=== PATIENT | male | born 1950 | race Caucasian/White ===

== ENCOUNTER 2023-04-11 07:58 | Outpatient (CLI) | payer MEDICARE, SELFPAY | END 2023-04-11 07:59 | disposition home or self-care (01) | LOC: NFLDREF 04-14 07:21 | PROVIDERS: PCP Family Medicine; Visit Provider Family Medicine | DX: Z00.00 Encounter for general adult medical examination without abnormal findings (principal); E78.5 Hyperlipidemia, unspecified; E66.3 Overweight; Z12.5 Encounter for screening for malignant neoplasm of prostate | CPT/HCPCS: 80053; 80061; 84153 ==

== ENCOUNTER 2023-11-08 10:27 | Outpatient (CLI) | payer MEDICARE, SELFPAY | END 2023-11-08 10:28 | disposition home or self-care (01) | PROVIDERS: PCP Family Medicine; Visit Provider Family Medicine | DX: R53.83 Other fatigue (principal); E78.5 Hyperlipidemia, unspecified; E66.3 Overweight | CPT/HCPCS: 80053; 84443 ==

== ENCOUNTER 2023-11-30 11:22 | Emergency (ER) | payer MEDICARE, SELFPAY ==
[2023-11-30 11:27] VITALS: BP 130/70; PULSE 58; RESP 20; TEMP 35.9; O2SAT 99; BMI 31.3
--- NOTE | 2023-11-30 11:59 | ED.GENADULT ---
HPI - General Adult General Time Seen by Provider: 11:59 Date Seen: 11/30/23 Chief complaint: Constipation Stated complaint: Constipated Time Seen by Provider: 11/30/23 11:59 Source: patient and RN notes reviewed Mode of arrival: ambulatory Limitations: no limitations History of Present Illness HPI narrative: This 73-year-old male is coming in with about a 10 day history of decreased stooling. He did go a small amount yesterday but really feels bloated and gassy. He is noting that the symptoms started after starting escitalopram 10 days ago. He has had no vomiting but has had diminished appetite in oral intake, does feel nauseated right now. No fevers or chills. He has had a history of constipation the past, states he has gotten suppositories from us in the past. He did stop at clinic to talk to them about is medicine but came over here as he felt he really needed to have a bowel movement. Related Data Previous Rx's Medication Instructions Recorded albuterol sulfate 90 mcg/actuation 2 puff inhalation Q4-6H PRN 05/04/22 aerosol inhaler (ProAir HFA) shortness of breath or wheezing #8.5 grams simvastatin 20 mg tablet 20 mg PO .Bedtime #90 tabs 04/16/23 escitalopram oxalate 10 mg tablet 10 mg PO QDAY #30 tabs 11/21/23 Allergies Allergy/AdvReac Type Severity Reaction Status Date / Time No Known Allergies Allergy Verified 11/08/23 09:30 Review of Systems Narrative: As per HPI. PFS PFS Medical History Trochanteric bursitis ?M70.60 - Trochanteric bursitis, unspecified hip (ICD-10) Gastroesophageal reflux (02/08/10) ?K21.9 - Gastro-esophageal reflux disease without esophagitis (ICD-10) Constipation due to opioid therapy ?K59.03 - Drug induced constipation (ICD-10) ?T40.2X5A - Adverse effect of other opioids, initial encounter (ICD-10) Back pain ?M54.9 - Dorsalgia, unspecified (ICD-10) Alcohol abuse (08/14/11) ?F10.10 - Alcohol abuse, uncomplicated (ICD-10) Hemorrhoids ?K64.9 - Unspecified hemorrhoids (ICD-10) History of depression ?Z86.59 - Personal history of other mental and behavioral disorders (ICD-10) Surgical History Status post rotator cuff repair ?Z98.890 - Other specified postprocedural states (ICD-10) History of foot surgery ?Z98.890 - Other specified postprocedural states (ICD-10) History of elbow surgery ?Z98.890 - Other specified postprocedural states (ICD-10) Family History (Updated 05/04/22 @ 08:47 by Froy Hardy MD) Mother Diabetes, Onset Age: 61 Father Colon cancer Social History Narrative: He is single. Retired. No children. Not sexually active. He exercises by walking and weightlifting about 4 days per week. No alcohol tobacco or recreational drug use. He struggled with alcohol use but has been sober since ~2011. Smoking Status: Never smoker How often do you have a drink containing alcohol: never How often do you have six or more drinks on one occasion: Never AUDIT-C Alcohol total score: 0 Non-prescribed substance use: denies use Little interest or pleasure in doing things: not at all Feeling down, depressed, or hopeless: not at all service: No Exam Const: Vital Signs, click to edit/add: Vital Signs - 24 hr 11/30/23 11:27 11/30/23 12:06 Temperature 96.7 F L Pulse Rate [Pulse Oximeter] 58 L 85 Respiratory Rate 20 16 Blood Pressure [Ri ght Upper Arm] 130/70 125/85 Pulse Oximetry 99 96 Oxygen Delivery Me thod Room Air Room Air This 73-year-old male is alert, interactive, no apparent distress. He is hard of hearing. He is extremely pleasant. Able to speak in complete sentences. Lungs are clear, good air entry, wheeze or crackles. CV regular rate and rhythm, no murmur, normal S1-S2, no S3-S4. Abdomen is mildly distended but soft, nontender anywhere, do not feel any masses. He has hyperactive bowel sounds. Documenting provider has reviewed patient's vital signs: yes Course Course ED Course: Reviewed with him that we will do a flat and upright to look at his bowel architecture. Did want to rule out any obstructive pathology. Do not feel he needs labs at this point or any advanced imaging. May reconsider that based on his flat and upright. If flat and upright is looking reassuring, will proceed with an Enemeez to start. Reevaluation(s) Time of Reevaluation #1: 13:26 Reevaluation #1: Patient reports he had results with the Enemeez. He states he passed a lot of gas. Reviewed with him from what I see on his x-ray, he can expect to probably still continue to passed some gas while he is moving things through. Will plan on discharge to home. Vital Signs Vital signs: Initial Vital Signs Temperature 96.7 F L 11/30/23 11:27 Temperature Source Temporal Artery Scan 11/30/23 11:27 Pulse Rate 58 L 11/30/23 11:27 Respiratory Rate 20 11/30/23 11:27 Blood Pressure 130/70 11/30/23 11:27 Blood Pressure Mean 90 11/30/23 11:27 Blood Pressure Position Supine 11/30/23 11:27 Pulse Oximetry 99 11/30/23 11:27 Oxygen Delivery Method Room Air 11/30/23 11:27 Vital Signs Temperature 96.7 F L 11/30/23 11:27 Pulse Rate 58 L 11/30/23 11:27 Respiratory Rate 20 11/30/23 11:27 Blood Pressure 130/70 11/30/23 11:27 Pulse Oximetry 99 11/30/23 11:27 Oxygen Delivery Method Room Air 11/30/23 11:27 Temperature 96.7 F L 11/30/23 11:27 Pulse Rate 85 11/30/23 12:06 Respiratory Rate 16 11/30/23 12:06 Blood Pressure 125/85 11/30/23 12:06 Pulse Oximetry 96 11/30/23 12:06 Oxygen Delivery Method Room Air 11/30/23 12:06 Medications Administered Medications: Discontinued Medications Generic Name Dose Route Start Last Admin Trade Name Freq PRN Reason Stop Dose Admin Docusate Sodium/Benzocaine 5 ml 11/30/23 12:49 11/30/23 13:01 Docusate Sodium/Benzocaine 5 Ml Enema SC 11/30/23 12:50 5 ml ONCE ONE Administration Medical Decision Making Imaging Data Abdominal x-ray: Attestation: I have reviewed the pertinent imaging results. My impression: I do see some stool buildup, no definitive evidence of any obstructive pathology, wait radiology over read. Radiologist's impression: Patient: EKATERINA LOPEZ Facility:?[facility] Patient ID:?[id number] Site Patient ID:?[id number]. Site :?[id number] Study:?XRay Abdomen FLAT /UPRIGHT 2V-11/30/2023 12:44:19 PM Ordering Physician:?Marina Thomas Final Report: Indication: CONSTIPATION Technique: Abdomen 2 view. Comparison: CT 10/08/2019 Findings: Mild curvature of the spine is present. No abnormal intra-abdominal calcifications. No free intraperitoneal air. Moderate stool within the colon. No pleural effusion. Impression: Moderate colonic stool suggesting constipation. No obstruction. Dictated by Ryder Tong MD @ 11/30/2023 12:46:27 PM (Electronic Signature) Discharge Plan Discharge Clinical Impression: Constipation Patient Disposition: Home, Self-Care Condition: Stable Instructions: Constipation (ED), High Fiber Diet (ED) Additional Instructions: Stay on your Metamucil that you have been taking. I would recommend staying on the MiraLax 17 g daily for the time being. If you do start to develop diarrhea, can back off the MiraLax. Await recommendations from your primary doctor regarding the escitalopram, continue to take it until you hear from your provider any different recommendations. Review handouts. Have it any point your abdominal pain is worsening, believe constipation is worsening or if you have vomiting with constipation, do recommend re-evaluation. Prescriptions: No Action simvastatin 20 mg tablet 20 mg PO .Bedtime Qty: 90 3RF albuterol sulfate [ProAir HFA] 90 mcg/actuation HFA aerosol inhaler 2 puff inhalation Q4-6H PRN (Reason: shortness of breath or wheezing) Qty: 8.5 5RF escitalopram oxalate 10 mg tablet 10 mg PO QDAY Qty: 30 1RF Follow Up/Referrals: Froy Hardy MD [Primary Care Provider] - Stand Alone Forms: [facility] Info Instructions
--- NOTE | 2023-11-30 12:03 | CRLHL7_ITS ---
For Patients: As a result of the Century Cures Act, medical imaging exams and procedure reports are released immediately into your electronic medical record. You may view this report before your referring provider. If you have questions, please contact your health care provider. Indication: CONSTIPATION Technique: Abdomen 2 view. Comparison: CT 10/08/2019 Findings: Mild curvature of the spine is present. No abnormal intra-abdominal calcifications. No free intraperitoneal air. Moderate stool within the colon. No pleural effusion. Impression: Moderate colonic stool suggesting constipation. No obstruction. Dictated by Ryder Tong MD @ 11/30/2023 12:46:27 PM (Electronically Signed)
[2023-11-30 12:06] VITALS: BP 125/85; PULSE 85; RESP 16; O2SAT 96
--- OUTSIDE RECORDS SUMMARY | 2023-11-30 12:10 | XMS_ITS | Clinical Summary ---
Author Name Unknown Organization [facility] Address [place], [place] [address] Care Team Providers Care Ordnance Artificer Name Role Phone Froy Hardy MD Primary Care Provider [phone] Allergies No known active allergies Medications Medication Sig Dispensed Refills Start Date End Date Status simvastatin (ZOCOR) 20 mg tablet Take 1 tablet by mouth at bedtime. 0 03/31/2015 Active durable medical equipment (DME)Indications:Righ t foot pain [phone] Plantar fasciitis night splint, large 1 Each 0 09/18/2023 Active Encounters Date Type Department Care Team Description 09/18/2023 3:00 PM JEWELRY MANAGER Ancillary Procedure [facility] [address] [place] [address] 09/18/2023 2:45 PM JEWELRY MANAGER Office Visit [facility] [address] [place] [address] Mars Rosas DPM Consult (Right 2nd toe pain) 09/18/2023 Travel from Last 3 Months Social History Tobacco Use Types Packs/Day Years Used Date Smoking Tobacco: Never Smokeless Tobacco: Never Tobacco Cessation:Counseling Given: Yes Alcohol Use Standard Drinks/Week Comments No 0 (1 standard drink = 0.6 oz pur e alcohol) Sex and Gender Information Value Date Recorded Sex Assigned at Not on file Gender Identity Not on file Sexual Orientation Not on file Obstetrics History Last Filed Vital Signs Vital Sign Reading Time Taken Comments Blood Pressure 122/78 09/18/2023 3:06 PM JEWELRY MANAGER Pulse 72 09/18/2023 3:06 PM JEWELRY MANAGER Temperature 36.3 ??C (97.3 ??F) 06/19/2018 9:18 AM CD T Respiratory Rate - - Oxygen Saturation 98% 09/18/2023 3:06 PM JEWELRY MANAGER Inhaled Oxygen Concentration - - Weight 87 kg (191 lb 11.2 oz) 09/18/2023 3:06 PM JEWELRY MANAGER Height - - Body Mass Index - - Plan of Treatment Health Maintenance Due Date Last Done Comments Tdap 1959 Depression screening for age 12+ 1960 BMI (ht and wt on same day) for age 18+ 1966 Hepatitis C screening for ag e 18-79 1966 Tetanus booster 1968 Colonoscopy through age 75 1993 Lipids for age 45-75 1993 Zoster (shingles) series for age 50+ (1 of 2) 1998 Medicare Wellness for age 65+ 2013 Pneumococcal series for age 65+ (1 of 1 - PCV) 2013 Influenza for age 65+ 07/06/2023 COVID-19 vaccine series Completed 08/08/20 23, 08/18/2022, 09/08/2021, Additional history exists Procedures Procedure Name Priority Date/Time Associated Diagnosis Comments XR FOOT 3 VIEWS RIGHT Routine 09/18/2023 2:57 PM JEWELRY MANAGER Right foot pain from Last 3 Months Results * XR FOOT 3 VIEWS RIGHT (09/18/2023 2:57 PM JEWELRY MANAGER) Anatomical Region Laterality Modality FEET, FOOT R Computed Radiogr aphy 09/19/2023 6:52 AM JEWELRY MANAGER Narrative 09/19/2023 6:52 AM JEWELRY MANAGER For Patients: ??As a result of the Century Cures Act, medical imaging exams and procedure reports are released immediately into your electronic medical record. ??You may view this report before your referring provider. ??If you have questions, please contact your health care provider. Indication: Right foot pain. Technique: Right foot 3 views Comparison: 04/17/2018 Findings: Postop changes to the 2nd metatarsal head. Mild spurring at the 1st MTP joint. Midfoot alignment normal. Small calcaneal spurs. No fracture. 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 No fracture. Intact hardware within the 2nd metatarsal head. Dictated by Ryder Tong MD @ Sep 19 2023 ??6:52AM (Electronically Signed) ?? Procedure Note Ryder Tong MD - 09/19/2023 For Patients: As a result of the Cures Act, medical imagingexams and procedure reports are released immediately into your electronicmedical record. You may view this report before your referring provider.If you have questions, please contact your health care provider. Indication: Right foot pain. Technique: Right foot 3 views Comparison: 04/17/2018 Findings: Postop changes to the 2nd metatarsal head. Mild spurring at the 1st MTPjoint. Midfoot alignment normal. Small calcaneal spurs. No fracture. 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 Nofracture. Intact hardware within the 2nd metatarsal head. Dictated by Ryder Tong MD @ Sep 19 2023 6:52AM (Electronically Signed) Mars Rosas DPM GENERAL IMAGING from Last 3 Months Care Teams Ordnance Artificer Relationship Specialty Start Date End Date Froy Hardy MD [address] [place] [phone] PCP - General Family Practice 09/07/20
[2023-11-30] MEDS: DOCUSATE SODIUM/BENZOCAINE 5 ML ENEMA PR (13:01)
--- NOTE | 2023-11-30 13:17 | ED.NURSE ---
Post enema patient was able to have a bowel movement and experienced some relief. Patient continues to not complain of any pain.
[2023-11-30 13:54] VITALS: BP 123/85; PULSE 80; RESP 18; O2SAT 96
== END 2023-11-30 13:55 | disposition home or self-care (01) ==
PROVIDERS: Emergency Provider Family Medicine; PCP Family Medicine
DX: K59.00 Constipation, unspecified (principal)
CPT/HCPCS: 74019; 99283; A9270

== ENCOUNTER 2024-04-04 07:39 | Outpatient (CLI) | payer MEDICARE, SELFPAY ==
--- OUTSIDE RECORDS SUMMARY | 2024-04-04 07:41 | XMS_ITS | Clinical Summary ---
Author Organization [facility] Address [place], [place] [address] Care Team Providers Care Filler Shredder Machine Name Role Phone Froy Hardy MD Primary Care Provider [phone] Allergies No known active allergies Medications Medication Sig Dispensed Refills Start Date End Date Status simvastatin (ZOCOR) 20 mg tablet Take 1 tablet by mouth at bedtime. 0 03/31/2015 Active durable medical equipment (DME)Indications:Righ t foot pain [phone] Plantar fasciitis night splint, large 1 Each 09/18/2023 Active Encounters Date Type Department Care Team Description 03/25/2024 Telephone [facility] [address] [place] [address] Mars Rosas, [place] Appointment Request (RIGHT HEEL PAIN ) from Last 3 Months Social History Tobacco [...] Comments Blood Pressure 122/78 09/18/2023 3:06 PM PNEUMATIC DEICER INSPECTOR Pulse 72 09/18/2023 3:06 PM PNEUMATIC DEICER INSPECTOR Temperature 36.3 ??C (97.3 ??F) 06/19/2018 9:18 AM CD T Respiratory Rate - - Oxygen Saturation 98% 09/18/2023 3:06 PM PNEUMATIC DEICER INSPECTOR Inhaled Oxygen Concentration - - Weight 87 kg (191 lb 11.2 oz) 09/18/2023 3:06 PM PNEUMATIC DEICER INSPECTOR Height - - Body Mass Index - - Plan of Treatment Upcoming Encounters Date Type Department Care Team (Late st Contact Info) Description 04/29/2024 2:45 PM CDT Office Visit [facility] [address] [place] [address] Mars Rosas, DPM [address] [place] [address] Health Maintenance Due Date Last Done Comments [...] - PCV) 2013 Influenza for age 65+ 07/06/2024 COVID-19 vaccine series Completed 08/08/20 23, 08/18/2022, 09/08/2021, Additional history exists Care Teams Filler Shredder Machine Relationship Specialty Start Date End Date Froy Hardy MD [address] [place] [phone] PCP - General Family Practice 09/07/20
--- OUTSIDE RECORDS SUMMARY | 2024-04-04 07:41 | XMS_ITS | Continuity of Care Document ---
Author Organization [facility] Address [address] [address] [place] [address] Phone Care Team Providers Care Home Insurance Agent Name Role Phone Lui Mcknight MD Unavailable Unavailable Advance Directives Directive Yes / No Effective Date File Name No Information Encounters Encounter Description Practice Location Reason(s) For Visit Diagnoses Date Provider Providers Copied on Encounter [facility], [address] [address], [place], [place], [id number], [place] tel:[phone] [facility] No Information Juan Luis Poe. [address] [facility], [facility] [address], [place], [place], [id number], [place]. tel:[phone] Referring Provider: Listed Not. Family History Family Member Type Diagnosis Age At Onset No Information Payers Payer name Insurance type Covered libertarian ID Authoriza tion(s) Blue Plus BL [id number] Social History Type Description Quantity Date Captured Comments Sex Male Smoking Status No Information Chief Complaint And Reason For Visit No Information Reason For Referral Reason For Referral No Information History Of Present Illness Encounter Date Complaint History Of Prese nt Illness No Information Functional Status Date Functional Assessmen t No Information Instructions Date Instruction Additional Infor mation No Information Assessments Type Assessment Date No Information Patient Care Teams Name Effective Dates (start - stop) Status Members No Information
--- NOTE | 2024-04-04 07:57 | W.ANESCHARGE ---
Anesthesia Charges Start Date/Time Anesthesia Start Date: 04/04/24 Anesthesia Start Time: 08:00 Stop Date/Time Anesthesia Stop Date: 04/04/24 Anesthesia Stop Time: 08:26 Summary Extremes of Age - Over 70 or under 1: MDA
--- NOTE | 2024-04-04 08:31 | W.ANESCHARGE ---
Anesthesia Charges Start Date/Time Anesthesia Start Date: 04/04/24 Anesthesia Start Time: 08:00 Stop Date/Time Anesthesia Stop Date: 04/04/24 Anesthesia Stop Time: 08:26 Summary Extremes of Age - Over 70 or under 1: INSTRUCTIONAL DESIGN MANAGER
== END 2024-04-04 07:40 | disposition home or self-care (01) ==
LOC: OP CLINIC 07:39
PROVIDERS: PCP Family Medicine; Visit Provider Internal Medicine
DX: Z12.11 Encounter for screening for malignant neoplasm of colon (principal); Z86.010 Personal history of colon polyps
CPT/HCPCS: 00811; 00812; 45378; 99100; J2704

== ENCOUNTER 2024-04-16 07:50 | Outpatient (CLI) | payer MEDICARE, SELFPAY ==
--- OUTSIDE RECORDS SUMMARY | 2024-04-19 20:25 | XMS_ITS | Clinical Summary ---
Author Organization [facility] Address [place], [place] [address] Care Team Providers Care Babbitt Spinner Name Role Phone Froy Hardy MD Primary Care Provider [phone] Allergies No known active allergies Medications Medication Sig Dispensed Refills Start Date End Date Status simvastatin (ZOCOR) 20 mg tablet Take 1 tablet by mouth at bedtime. 0 03/31/2015 Active durable medical equipment (DME)Indications:Righ t foot pain [phone] Plantar fasciitis night splint, large 1 Each 09/18/2023 Active Hospital, Clinic, or Other Facility Administered Medication Ordered Dose Route Frequency Start Date End Date Status triamcinolone acetonide (KENALOG) injection 10 mgIndications:Planta r fasciitis 10 mg INFILTRATION ONE TIME 04/09/2024 04/09/2024 Ended Encounters Date Type Department Care Team Description 04/09/2024 1:45 PM CDT Office Visit [facility] [address] [place] [address] Mars Rosas DPM Consult (Right heel pain) 04/09/2024 Travel 03/25/2024 Telephone [facility] [address] [place] [address] Mars Rosas DPM Appointment Request (RIGHT HEEL PAIN ) from [...] Sign Reading Time Taken Comments Blood Pressure 120/76 04/09/2024 1:47 PM CDT Pulse 77 04/09/2024 1:47 PM CDT Temperature 36.3 ??C (97.3 ??F) 06/19/2018 9:18 AM CD T Respiratory Rate - - Oxygen Saturation 99% 04/09/2024 1:47 PM CDT Inhaled Oxygen Concentration - - Weight 83.6 kg (184 lb 6.4 oz) 04/09/2024 1:47 P M CDT Height - - Body Mass Index - - Plan of Treatment Health Maintenance Due Date Last Done Comments Tdap 1959 Depression screening for age 12+ 1960 BMI (ht and wt on same day) for age 18+ 1966 Hepatitis C screening for ag e 18-79 1966 Tetanus booster 1968 Zoster (shingles) series for age 50+ (1 of 2) 1998 Medicare Wellness for age 65+ 2013 Pneumococcal series for age 65+ (1 of 1 - PCV) 2013 COVID-19 vaccine series (2022-24 season) 2023 08/08/2023, 08/18/2022, 09/08/2021, Additional history exists Influenza for age 65+ 07/06/2024 Care Teams Babbitt Spinner Relationship Specialty Start Date End Date Froy Hardy MD [address] [place] [phone] PCP - General Family Practice 09/07/20
== END 2024-04-16 07:51 | disposition home or self-care (01) ==
LOC: NFLDREF 04-19 20:23
PROVIDERS: PCP Family Medicine; Referring Provider Family Medicine; Visit Provider Family Medicine
DX: Z00.00 Encounter for general adult medical examination without abnormal findings (principal); E78.5 Hyperlipidemia, unspecified; Z12.5 Encounter for screening for malignant neoplasm of prostate; R53.83 Other fatigue; E66.3 Overweight; F41.1 Generalized anxiety disorder
CPT/HCPCS: 80053; 80061; G0103

== ENCOUNTER 2024-07-31 05:51 | Emergency (ER) | payer MEDICARE, SELFPAY ==
[2024-07-31 06:00] VITALS: BP 131/87; PULSE 75; RESP 18; TEMP 36.6; O2SAT 99
--- NOTE | 2024-07-31 06:45 | CRLHL7_ITS ---
For Patients: As a result of the Century Cures Act, medical imaging exams and procedure reports are released immediately into your electronic medical record. You may view this report before your referring provider. If you have questions, please contact your health care provider. Indication: Left low back pain. Technique: Three view(s) of the lumbar spine. Comparison: 10/08/2019. Findings: Field of view: Adequate. Lumbar vertebral bodies: 5. Alignment: Minimal upper lumbar dextrocurvature. Trace anterolisthesis of L4 on L5. Approximate 3 mm retrolisthesis of L2 on L3. Vertebral body heights: Mild superior endplate compression deformity T12 and L1, unchanged compared to 2019. No acute fracture line is visualized. Intervertebral disc spaces: Mild multilevel intervertebral disc space narrowing. Degenerative changes: Multilevel endplate osteophytes as well as severe mid and lower lumbar facet arthropathy. Miscellaneous: Mild degenerative changes of the sacroiliac joints. Atherosclerotic arterial calcifications. Nonobstructive bowel gas pattern. Impression: 1. Chronic mild superior endplate compression deformities at T12 and L1. 2. Multilevel lumbar spondylosis. Dictated by Candelaria Vega MD @ 07/31/2024 7:18:43 AM (Electronically Signed)
--- NOTE | 2024-07-31 06:48 | ED_ITS ---
HPI - Back Pain/Injury General Date Seen: 07/31/24 Chief Complaint: Back Injury/Pain Stated Complaint: Back pain can barely walk almost fainted this AM Time Seen by Provider: 07/31/24 06:12 Source: patient Mode of arrival: ambulatory Limitations: no limitations History of Present Illness HPI Narrative: Patient is a 74-year-old male who has been having pain in his low back on and off for most of the summer. He was seen by his PCP just over a week ago and had a steroid injection into his right trochanteric bursa. He believes that the pain has moved from that side into his left side but is in the low back and not in the hips. It radiates down into the left buttock and posterior thigh. The pain was so severe this morning they had difficulty getting back to bed after getting up to use the bathroom. No fevers or chills. No dysuria, urgency, frequency, hematuria. No history of back injury. He went to the chiropractor earlier in the summer for about two weeks but that did not seem to make much difference. Steroid injection has not helped. He has not taking any medication other than a single removed last evening. Related Data Home Medications ?Medication ?Instructions ?Recorded ?Confirmed simvastatin 20 mg tablet 20 mg PO HS 07/31/24 07/31/24 Previous Rx's ?Medication ?Instructions ?Recorded albuterol sulfate 90 mcg/actuation 2 puff inhalation Q4-6H PRN 05/04/22 aerosol inhaler (ProAir HFA) shortness of breath or wheezing #8.5 grams cyclobenzaprine 5 mg tablet 5 mg PO TID PRN muscle spasm #20 07/31/24 tabs prednisone 20 mg tablet 40 mg (2 x 20 mg) PO DAILY #10 tabs 07/31/24 Allergies Allergy/AdvReac Type Severity Reaction Status Date / Time No Known Allergies Allergy Verified 07/31/24 06:04 Review of Systems Narrative: Review of systems is outlined above otherwise noted to be negative. [facility] Medical History Trochanteric bursitis ?M70.60 - Trochanteric bursitis, unspecified hip (ICD-10) Gastroesophageal reflux (02/08/10) ?K21.9 - Gastro-esophageal reflux disease without esophagitis (ICD-10) Constipation due to opioid therapy ?K59.03 - Drug induced constipation (ICD-10) ?T40.2X5A - Adverse effect of other opioids, initial encounter (ICD-10) Back pain ?M54.9 - Dorsalgia, unspecified (ICD-10) Alcohol abuse (08/14/11) ?F10.10 - Alcohol abuse, uncomplicated (ICD-10) Hemorrhoids ?K64.9 - Unspecified hemorrhoids (ICD-10) History of depression ?Z86.59 - Personal history of other mental and behavioral disorders (ICD-10) Surgical History Status post rotator cuff repair ?Z98.890 - Other specified postprocedural states (ICD-10) History of foot surgery ?Z98.890 - Other specified postprocedural states (ICD-10) History of elbow surgery ?Z98.890 - Other specified postprocedural states (ICD-10) Family History (Updated 05/04/22 @ 08:47 by Froy Hardy MD) Mother Diabetes, Onset Age: 61 Father Colon cancer Social History (Updated 04/21/24 @ 07:51 by Nyasia Blackbrun~[facility], [facility]) Narrative: He is single. Retired. No children. Not sexually active. He exercises by walking and weightlifting about 4 days per week. No alcohol tobacco or recreational drug use. He struggled with alcohol use but has been sober since ~2011. What is your current living situation?: I presently have a place to live Problems where you live: no known problems In the past 12 months, utilities in danger of being shut off: no In past 12 months, lack of transportation kept you from medical appts, meetings, work, or getting things needed for daily living: no In the past 12 mos, have been you worried that your food would run out before you had money to buy more?: never true In the past 12 mos, the food you bought just didn't last and you didn't have money to buy more?: never true Smoking Status: Never smoker Second hand tobacco smoke exposure: No How often do you have a drink containing alcohol: never How often do you have six or more drinks on one occasion: Never AUDIT-C Alcohol total score: 0 Non-prescribed substance use: denies use How often does anyone, including family, friends and others, physically hurt you : never How often does anyone, including family, friends and others, insult or talk down to you: never How often does anyone, including family, friends and others, threaten you with harm: never How often does anyone, including family, friends and others, scream or curse at you: never Little interest or pleasure in doing things: not at all Feeling down, depressed, or hopeless: not at all service: No Exam Narrative: Exam Narrative: Vitals noted. HEENT: Conjunctiva clear. Neck is supple without adenopathy. Lungs: Clear to auscultation in all lauren. No wheezes, rales, rhonchi. Heart: Regular rate and rhythm without murmur. Abdomen: Obese, Soft and nontender. No guarding, rigidity, rebound. Bowel sounds are normal. No palpable masses. Extremities: No cyanosis or edema. Good distal pulses. Skin: No abnormalities noted of the exposed skin. Neurologic: Awake, alert, fully oriented. Neurologic exam is nonfocal. Back: He has tenderness to palpation of the paraspinous column on the left. Reflexes are symmetric. He is more comfortable with the hip flexed. But no tenderness over the trochanteric bursa on either side. No midline tenderness. No palpable spasms. There is myofascial tightness and tenderness. Const: Vital Signs, click to edit/add: Vital Signs - 24 hr 07/31/24 06:00 Temperature 97.9 F Pulse Rate [Right Pulse Oximeter] 75 Respiratory Rate 18 Blood Pressure [Le ft Upper Arm] 131/87 Pulse Oximetry 99 Oxygen Delivery Me thod Room Air Course Course ED Course: Patient seen and examined. Plain films of the lumbosacral spine are ordered. Her pain is given Toradol 30 mg IM and oxycodone 5 mg orally. 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 He did get some relief from the pain medications and is discharged home in the care of his brother. Vital Signs Vital signs: Initial Vital Signs Temperature 97.9 F 07/31/24 06:00 Temperature Source Temporal Artery Scan 07/31/24 06:00 Pulse Rate 75 07/31/24 06:00 Respiratory Rate 18 07/31/24 06:00 Blood Pressure 131/87 07/31/24 06:00 Blood Pressure Mean 101 07/31/24 06:00 Blood Pressure Position Supine 07/31/24 06:00 Pulse Oximetry 99 07/31/24 06:00 Oxygen Delivery Method Room Air 07/31/24 06:00 Vital Signs Temperature 97.9 F 07/31/24 06:00 Pulse Rate 75 07/31/24 06:00 Respiratory Rate 18 07/31/24 06:00 Blood Pressure 131/87 07/31/24 06:00 Pulse Oximetry 99 07/31/24 06:00 Oxygen Delivery Method Room Air 07/31/24 06:00 Temperature 97.9 F 07/31/24 06:00 Pulse Rate 75 07/31/24 06:00 Respiratory Rate 18 07/31/24 06:00 Blood Pressure 131/87 07/31/24 06:00 Pulse Oximetry 99 07/31/24 06:00 Oxygen Delivery Method Room Air 07/31/24 06:00 Medications Administered Medications: Discontinued Medications Generic Name Dose Route Start Last Admin Trade Name Freq PRN Reason Stop Dose Admin Ketorolac Tromethamine 30 mg 07/31/24 06:45 07/31/24 07:15 Ketorolac 30 Mg/Ml Inj IM 07/31/24 06:46 30 mg ONCE ONE Administration Oxycodone HCl 5 mg 07/31/24 06:45 07/31/24 07:15 Oxycodone 5 Mg Tablet PO 07/31/24 06:46 5 mg ONCE ONE Administration Discharge Plan Discharge Clinical Impression: Low back strain Patient Disposition: Home, Self-Care Condition: Stable Additional Instructions: Stay active. Heat in the morning, ice after activity. Tylenol 1000 mg 3 times daily. Aleve two tablets twice daily. Prednisone 40 mg daily for five days. Take this with food. Cyclobenzaprine 5 mg 3 times daily as needed for muscle spasms. Contact your PCP to discuss a different physical therapy referral as waiting a month to begin is unacceptable. Prescriptions: New prednisone 20 mg tablet 40 mg PO DAILY Qty: 10 0RF cyclobenzaprine 5 mg tablet 5 mg PO TID PRN (Reason: muscle spasm) Qty: 20 0RF No Action albuterol sulfate [ProAir HFA] 90 mcg/actuation HFA aerosol inhaler 2 puff inhalation Q4-6H PRN (Reason: shortness of breath or wheezing) Qty: 8.5 5RF simvastatin 20 mg tablet 20 mg PO HS Follow Up/Referrals: Froy Hardy MD [Primary Care Provider] - Stand Alone Forms: [employer] Info Instructions
--- OUTSIDE RECORDS SUMMARY | 2024-07-31 07:09 | XMS_ITS | Clinical Summary ---
Author Organization [employer] [facility] Address [place], [place] [address] Care Team Providers Care Seafood Technology Specialist Name Role Phone Froy Hardy MD Primary Care Provider [phone] Allergies No known active allergies Medications Medication Sig Dispensed Refills Start Date End Date Status simvastatin (ZOCOR) 20 mg tablet Take 1 tablet by mouth at bedtime. 0 03/31/2015 Active durable medical equipment (DME)Indications:Righ t foot pain [phone] Plantar fasciitis night splint, large 1 Each 09/18/2023 Active Social History Tobacco Use Types Packs/Day Years [...] 65+ (1 of 1 - PCV) 2013 RSV vaccine for adults or (1 - 1-dose 75+ series) 2023 COVID-19 vaccine series (2023- season) 2024 08/08/2023, 08/18/2022, 09/08/2021, Additional history exists Influenza for age 65+ 07/06/2024 Care Teams Seafood Technology Specialist Relationship Specialty Start Date End Date Froy Hardy MD [address] [place] [id number] PCP - General Family Practice 09/07/20
[2024-07-31] MEDS: KETOROLAC 30 MG/ML inj IM (07:15)
[2024-07-31] MEDS: OXYCODONE 5 MG TABLET PO (07:15)
== END 2024-07-31 08:15 | disposition home or self-care (01) ==
PROVIDERS: Emergency Provider Family Medicine; PCP Family Medicine
DX: M54.50 Low back pain, unspecified (principal)
CPT/HCPCS: 72100; 96372; 99282; 99284; A9270; J1885

== ENCOUNTER 2024-10-24 15:27 | Outpatient (CLI) | payer MEDICARE, SELFPAY ==
--- NOTE | 2024-10-24 16:00 | CRLHL7_ITS ---
For Patients: As a result of the Century Cures Act, medical imaging exams and procedure reports are released immediately into your electronic medical record. You may view this report before your referring provider. If you have questions, please contact your health care provider. INDICATION: RT LOWER JAW PAIN, RADIATES DOWN INTO NECK COMPARISON: None TECHNIQUE: A CT volumetric acquisition was performed of the neck during intravenous infusion of 100CC ISOVUE 370 nonionic intravenous contrast. Please note that all CT scans at this facility use dose modulation, iterative reconstruction, and/or weight-based dosing when appropriate to reduce radiation dose to as low as reasonably achievable. FINDINGS: The CT images demonstrate normal aeration of the mastoid air cells and middle ear cavities. The paranasal sinuses are clear. The nasopharynx appears normal. The parotid and submandibular glands are of normal size and have uniform enhancement. The oropharynx appears normal. The valleculae, epiglottis, aryepiglottic folds and piriform sinuses appear normal. There is a normal appearance of the larynx and subglottic trachea. The thyroid gland is of normal size and has uniform density. There is no evidence of lymphadenopathy within the anterior and posterior cervical triangles or within the supraclavicular region. Lung apices are clear. Generalized cortical atrophy noted within the brain parenchyma. Chronic wedging upper thoracic spine. IMPRESSION: Negative neck CT. Please note that all CT scans at this facility use dose modulation, iterative reconstruction, and/or weight-based dosing when appropriate to reduce radiation dose to as low as reasonably achievable. Dictated by Ryder Tong MD @ 10/27/2024 9:31:39 AM (Electronically Signed)
[2024-10-24 16:19] LABS: Creatinine* 1.2 mg/dL (0.5-1.5); Estimated Glomerular Filt Rate 63 ml/min
== END 2024-10-24 15:28 | disposition home or self-care (01) ==
LOC: CT 15:28
PROVIDERS: PCP Family Medicine; Visit Provider Otolaryngology
DX: R68.84 Jaw pain (principal); M54.2 Cervicalgia
CPT/HCPCS: 36415; 70491; 82565; Q9967

== ENCOUNTER 2025-04-20 07:40 | Outpatient (CLI) | payer MEDICARE, SELFPAY | END 2025-04-20 07:41 | disposition home or self-care (01) | LOC: NFLDREF 04-23 13:02 | PROVIDERS: PCP Family Medicine; Referring Provider Family Medicine; Visit Provider Family Medicine | DX: E78.5 Hyperlipidemia, unspecified (principal) | CPT/HCPCS: 80053; 80061 ==

== ENCOUNTER 2025-08-25 07:00 | Emergency (ER) | payer MEDICARE, SELFPAY ==
[2025-08-25 07:03] VITALS: BP 121/77; PULSE 92; RESP 18; TEMP 36; O2SAT 97
--- OUTSIDE RECORDS SUMMARY | 2025-08-25 07:03 | XMS_ITS | Clinical Summary ---
Author Organization [employer] [facility] Address [address] [place] [id number] Care Team Providers Care Plant Supervisor Name Role Phone Froy Hardy MD Primary Care Provider [phone] Allergies No known active allergies Medications simvastatin (ZOCOR) 20 mg tablet Take 1 tablet by mouth at bedtime. 0 5 Active durable medical equipment (DME)Indication s:Right foot pain [phone] Plantar fasciitis night splint, large 1 Each 3 Active hyaluronidase in lido 2%-bupiv. 0.75% - long eye block, clinic supply, Use as directed for procedure. Refrigerate. 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 Gender Identity Not on file Sexual Orientation Not on file Obstetrics History Last Filed Vital Signs Vital Sign Reading Time Taken Comments Blood Pressure 120/76 04/09/2024 1:47 PM CDT Pulse 77 04/09/2024 1:47 PM CDT Temperature 36.3 C (97.3 F) 06/19/2018 9:18 AM CDT Respiratory Rate - - Oxygen Saturation 99% 04/09/2024 1:47 PM CDT Inhaled Oxygen Concentration - - Weight 83.6 kg (184 lb 6.4 oz) 04/09/2024 1:47 P M CDT Height - - Body Mass Index - - Plan of Treatment Health Maintenance Due Date Last Done Comments Tetanus booster 1959 Depression screening for age 12+ 1960 BMI (ht and wt on same day) for age 18+ 1966 Hepatitis C screening for age 18-79 1966 Pneumococcal series for age 50+ (1 of 1 - PCV) 1998 Zoster (shingles) series for age 50+ (1 of 2) 1998 Medicare Wellness for age 65+ 2013 RSV vaccine for adults or (1 - 1-dose 75+ series) 2023 COVID-19 vaccine series (2024- season) 2025 08/08/2023, 08/18/2022, 09/08/2021, Additional history exists Influenza Vaccine (#1) 2025 Hepatitis B series for 19+ Aged Out N o longer eligible based on patient's age to complete this topic Insurance [employer] MED[employer] ADVANTAGE MR Care Teams Plant Supervisor Relationship Specialty Start Date End Date Froy Hardy MD [address] [place] [address] PCP - General Family Practice 09/07/20
--- NOTE | 2025-08-25 09:20 | ED.GENADULT ---
HPI - General Adult General Date Seen: 08/25/25 Chief complaint: Nausea/Vomiting Stated complaint: nausea, body aches Time Seen by Provider: 08/25/25 07:49 History of Present Illness HPI narrative: 75-year-old gentleman with a history of GERD, elevated BMI, BPH, hyperlipidemia, anxiety, depression, asthma who presents to the ER today because he has not been feeling well. Per his triage note he has complaints of dizziness, headache, feeling tired, weakness, without any fever or cough. He had an appointment with his doctor next week but did not feel he could wait that long. Per medical record, his PCP is Dr. Abdul. Last visit was in May, at that point complete was for back pain-SI joint pain. The patient presents to the ER today for overall generalized weakness, lightheadedness, nausea and not feeling well. The patient says that he has had symptoms like this for at least a year, maybe longer. They have been often on. No clear pattern. Sometime sometimes they get worse for a few days or weeks and then they get better. He notes that he has had it for least a couple of months where he has been a little bit run down, fatigued, sleepy or than normal, and sometimes lightheaded. He does note that there is a pattern to his lightheadedness. He feels fine when he is laying down but then he gets little bit weak and lightheaded when he sits or stands up. Occasionally he feels some irregularity of his heartbeat but he has no diagnosis of AFib or other arrhythmia. No other history of heart problems such as valvular disease or coronary artery disease. He is not and has not been having any chest pain. It does not sound like his palpitations really correlate to his lightheadedness. Sometimes he feels a little bit short of breath. He does not have a cough. No known sick exposures. He does have a history of mild asthma but rarely has to use an inhaler. He is not having any abdominal pain. He told his triage nurses sometimes he is nauseous. No vomiting. He does note that he has had trouble with the rectal fissure. This was diagnosed about a month ago and initially presented with rectal pain and a little bit of bright red blood per rectum. He has been already been seen by General surgery, Dr. Mott and is treating his rectal fissure was stool softeners (senna) and topical rectal lidocaine. Still has some pain when he defecates but overall stools are much softer since starting the senna. Previous bloody stools have resolved. Appetite has been normal. No weight loss or gain. Because of the persistent lightheadedness, he tried to get an appointment with his primary care provider, but could not be seen in clinic. Since he felt so crummy, although he is not really worse than normal today, he knew he needed to be seen, so he came to the ER. Related Data Previous Rx's ?Medication ?Instructions ?Recorded albuterol sulfate 90 mcg/actuation 2 puff inhalation Q4-6H PRN 04/23/25 aerosol inhaler shortness of breath or wheezing #8.5 grams omeprazole 40 mg capsule,delayed 40 mg PO QDAY #90 caps 04/23/25 release simvastatin 20 mg tablet 20 mg PO HS #90 tabs 04/23/25 tamsulosin 0.4 mg capsule 0.4 mg PO QDAY #90 caps 04/23/25 prednisone 20 mg tablet 40 mg (2 x 20 mg) PO DAILY #10 tabs 08/25/25 Allergies Allergy/AdvReac Type Severity Reaction Status Date / Time No Known Allergies Allergy Verified 08/25/25 07:06 [facility] Medical History Gastroesophageal reflux (02/08/10) ?K21.9 - Gastro-esophageal reflux disease without esophagitis (ICD-10) Trochanteric bursitis ?M70.60 - Trochanteric bursitis, unspecified hip (ICD-10) Constipation due to opioid therapy ?K59.03 - Drug induced constipation (ICD-10) ?T40.2X5A - Adverse effect of other opioids, initial encounter (ICD-10) Back pain ?M54.9 - Dorsalgia, unspecified (ICD-10) Alcohol abuse (08/14/11) ?F10.10 - Alcohol abuse, uncomplicated (ICD-10) Hemorrhoids ?K64.9 - Unspecified hemorrhoids (ICD-10) History of depression ?Z86.59 - Personal history of other mental and behavioral disorders (ICD-10) Surgical History Status post rotator cuff repair ?Z98.890 - Other specified postprocedural states (ICD-10) History of foot surgery ?Z98.890 - Other specified postprocedural states (ICD-10) History of elbow surgery ?Z98.890 - Other specified postprocedural states (ICD-10) Family History Mother Diabetes, Onset Age: 61 Father Colon cancer Social History (Updated 04/23/25 @ 09:47 by Nyasia Blackburn~[facility], [facility]) Narrative: He is single. Retired. No children. Not sexually active. He exercises by walking and weightlifting about 4 days per week. No alcohol tobacco or recreational drug use. He struggled with alcohol use but has been sober since ~2011. What is your current living situation?: I presently have a place to live Problems where you live: no known problems In the past 12 months, utilities in danger of being shut off: no In past 12 months, lack of transportation kept you from medical appts, meetings, work, or getting things needed for daily living: no In the past 12 mos, have been you worried that your food would run out before you had money to buy more?: never true In the past 12 mos, the food you bought just didn't last and you didn't have money to buy more?: never true Smoking Status: Never smoker Second hand tobacco smoke exposure: No How often do you have a drink containing alcohol: never How often do you have six or more drinks on one occasion: Never AUDIT-C Alcohol total score: 0 Non-prescribed substance use: denies use How often does anyone, including family, friends and others, physically hurt you: never How often does anyone, including family, friends and others, insult or talk down to you: never How often does anyone, including family, friends and others, threaten you with harm: never How often does anyone, including family, friends and others, scream or curse at you: never service: No Exam Narrative: Exam Narrative: Constitutional: Appears well-developed and well-nourished. Alert. Conversant. Very polite. Non toxic. HENT: Head: Atraumatic. Nose: Nose normal. Mouth/Throat: Oral mucosa is clear and perhaps mildly dry but not desiccated or cracked no trismus. Pharynx normal. Tonsils symmetric. No tonsillar enlargement, erythema, or exudate. Eyes: Conjunctivae normal. EOM normal. Pupils equal, round, and reactive to light. No scleral icterus. Neck: Normal range of motion. Neck supple. No tracheal deviation present. Cardiovascular: Normal rate, regular rhythm. No gallop. No friction rub. No murmur heard. Symmetric radial artery pulses . No JVD Pulmonary/Chest: Effort normal. No stridor. No respiratory distress. Bilateral faint wheezes. No rales. No rhonchi . No tenderness. Abdominal: Soft. Bowel sounds normal. No distension. No mass. No tenderness. No rebound. No guarding. Musculoskeletal: RUE: Normal range of motion. No tenderness. No deformity LUE: Normal range of motion. No tenderness. No deformity RLE: Normal range of motion. No edema. No tenderness. No deformity LLE: Normal range of motion. No edema. No tenderness. No deformity Neurological: Alert and oriented to person, place, and time. Normal strength. CN II-VII intact. No sensory deficit. GCS eye subscore is 4. GCS verbal subscore is 5. GCS motor subscore is 6. Normal coordination Skin: Skin is warm and dry. No rash noted. No pallor. Normal capillary refill. Psychiatric: Normal mood. Normal affect. Const: Vital Signs, click to edit/add: Vital Signs - 24 hr 08/25/25 07:03 08/25/25 10:11 Temperature 96.8 F L Pulse Rate [Pulse Oximeter] 92 56 L Respiratory Rate 18 16 Blood Pressure [Ri t Upper Arm] 121/77 146/79 H Pulse Oximetry 97 97 Oxygen Delivery Me thod Room Air Room Air Course Vital Signs Vital signs: Initial Vital Signs Temperature 96.8 F L 08/25/25 07:03 Temperature Source Temporal Artery Scan 08/25/25 07:03 Pulse Rate 92 08/25/25 07:03 Pulse Rhythm Regular 08/25/25 07:03 Respiratory Rate 18 08/25/25 07:03 Blood Pressure 121/77 08/25/25 07:03 Blood Pressure Mean 91 08/25/25 07:03 Blood Pressure Position Sitting 08/25/25 07:03 Pulse Oximetry 97 08/25/25 07:03 Oxygen Delivery Method Room Air 08/25/25 07:03 Vital Signs Temperature 96.8 F L 08/25/25 07:03 Pulse Rate 92 08/25/25 07:03 Respiratory Rate 18 08/25/25 07:03 Blood Pressure 121/77 08/25/25 07:03 Pulse Oximetry 97 08/25/25 07:03 Oxygen Delivery Method Room Air 08/25/25 07:03 Temperature 96.8 F L 08/25/25 07:03 Pulse Rate 56 L 08/25/25 10:11 Respiratory Rate 16 08/25/25 10:11 Blood Pressure 146/79 H 08/25/25 10:11 Pulse Oximetry 97 08/25/25 10:11 Oxygen Delivery Method Room Air 08/25/25 10:11 Medications Administered Medications: Discontinued Medications Generic Name Dose Route Start Last Admin Trade Name Omeroq PRN Reason Stop Dose Admin Albuterol 2.5 mg 08/25/25 09:49 08/25/25 10:12 Albuterol Sulfate 2.5 Mg/3 Ml Vial.Neb NEB 08/25/25 09:50 2.5 mg ONCE ONE Administration Sodium Chloride 1,000 mls @ 1,000 mls/hr 08/25/25 09:45 08/25/25 11:23 0.9 % Sodium Chloride 1000 Ml IV 08/25/25 10:44 Infused .Q1H HAWK Infusion Medical Decision Making [facility] Narrative Medical decision making narrative: Very pleasant 75-year-old gentleman presenting to the ER today for lightheadedness and generalized weakness that have been ongoing off and on for a couple of years but in particular bad for a couple of weeks. Differential is broad He is not having any chest pain we did check screening EKG and troponins look for some sort of cardiac ischemia or ACS and they are normal. EKG does not show any evidence for an arrhythmia. I do not appreciate any heart murmurs to raise concern for valve disease such as aortic stenosis causing his lightheadedness. Lung sounds are clear and he has no peripheral edema suggest evolving CHF. He is having very mild shortness of breath and did have slight wheezing on his lung exam here in the ER. Treated with albuterol neb and improvement in wheezing. He does says his breathing is better but he still feels a little bit lightheaded after treatment. I had the No recent cough. Will treat him with a short course of prednisone and he will continue to use in his inhaler every 2-4 hours as needed. Electrolytes are normal save for mildly low sodium at 1:34 a.m.. He is not on any diuretics that would be triggering hyponatremia. Unclear cause. Received 1 L bolus of normal saline here in the ER which should help improve his sodium a little bit. Would recommend close outpatient follow-up with recheck within the next 3-5 days. BUN and creatinine are normal. Glucose normal. Lactic acid is normal. The blood sugar is normal there is no evidence for new onset diabetes or for DKA or HHS. TSH is normal. He does have a recent diagnosis of a rectal fissure. He had been having some rectal bleeding related to that but has not been having any bleeding in the past several days. No other black stools. Hemoglobin is normal at 13.7. At this point cause of his lightheadedness that is been ongoing for the past few weeks is unclear. With reasonable clinical Compas I think he is safe for outpatient management and close follow-up. Would recommend close outpatient follow-up. Patient is agreeable. He already has an appointment to see his PCP in 7 days but he will stop by the clinic today CV can get IM ER follow-up appointment will with 1 of the other docs for this week. Lab Data Labs: Lab Results 08/25/25 Range/Units 09:55 WBC 7.33 (4.50-11.00) K/uL RBC 4.76 (4.30-5.90) m/uL Hgb 13.7 (13.5-17.5) gm/dL Hct 42.0 (37.0-53.0) % MCV 88 (80-100) fL MCH 29 (26-34) pg MCHC 33 (32-36) gm/dL RDW Coeff of Nii 14.6 (11.5-15.5) % Plt Count 223 (140-440) K/uL Neut % (Auto) 63.3 (42.0-72.0) % Lymph % (Auto) 24.8 (20-44) % [place] % (Auto) 7.9 (0.0-11.0) % Eos % (Auto) 3.1 (0.0-7.0) % Baso % (Auto) 0.8 (0.0-3.0) % Neut # (Auto) 4.63 (1.7-7.0) K/uL Lymph # (Auto) 1.82 (0.90-2.90) K/uL [place] # (Auto) 0.60 (0.00-0.90) K/UL Eos # (Auto) 0.23 (0.00-0.50) K/uL Baso # (Auto) 0.06 (0.00-0.30) K/uL Abs Immat Gran (auto) 0.01 (0.00-0.30) K/uL Imm/Tot Granulo (auto) 0.1 % Sodium 134 L (135-149) mmol/L Potassium 4.5 (3.6-5.1) mmol/L Chloride 102 (96-114) mmol/L Carbon Dioxide 24 (20-32) mmol/L Anion Gap 8 (7-15) mEq/L BUN 19 (7-30) mg/dL Creatinine 1.1 (0.5-1.5) mg/dL Estimated GFR 69 ml/min Glucose 101 (60-115) mg/dL Lactate 0.8 (0.5-1.9) mmol/L Calcium 10.1 (8.4-10.6) mg/dL Troponin I < 0.01 (0.01-0.04) ng/mL TSH 3.140 (0.270-4.200) uIU/mL ECG Data Attestation: I personally reviewed and interpreted this ECG as follows: Interpretation: Normal sinus rhythm Rate 60 FL interval 202 Normal QRS axis No ST segment elevation or depression. QTC 412, QTC 412 Discharge Plan Discharge Clinical Impression: Asthma, Lightheadedness, Acute hyponatremia Patient Disposition: Home, Self-Care Condition: Stable Instructions: Asthma (DC), Hyponatremia (ED), Lightheadedness (ED) Additional Instructions: As we discussed, please come back to the ER right away if you have worsening symptoms, especially worsening lightheadedness or if you have worsening trouble breathing or new symptoms such as chest pain, abdominal pain, or bloody stools. Please follow-up with your regular doctor by next Sunday. If possible, stop by the clinic today to see if you can arrange an ER follow-up visit to have your labs rechecked by Sunday of this week. Prescriptions: New prednisone 20 mg tablet 40 mg PO DAILY Qty: 10 0RF No Action simvastatin 20 mg tablet 20 mg PO HS Qty: 90 3RF omeprazole 40 mg capsule,delayed release(DR/EC) 40 mg PO QDAY Qty: 90 3RF tamsulosin 0.4 mg capsule 0.4 mg PO QDAY Qty: 90 3RF albuterol sulfate 90 mcg/actuation HFA aerosol inhaler 2 puff inhalation Q4-6H PRN (Reason: shortness of breath or wheezing) Qty: 8.5 5RF Follow Up/Referrals: Froy Hardy MD [Primary Care Provider, Family Practice] Stand Alone Forms: [employer] Info Instructions
[2025-08-25 10:04] LABS: Lactate* 0.8 mmol/L (0.5-1.9)
[2025-08-25 10:11] VITALS: BP 146/79; PULSE 56; RESP 16; O2SAT 97
[2025-08-25] MEDS: ALBUTEROL SULFATE 2.5 MG/3 ML VIAL.NEB NEB (10:12)
[2025-08-25 10:15] LABS: Hematocrit* 42.0 % (37.0-53.0); Hemoglobin* 13.7 gm/dL (13.5-17.5); Immature Granulocytes Abs Auto 0.01 K/uL (0.00-0.30); Immature Granulocytes Pct Auto 0.1 %; Lymphocytes Absolute Auto 1.82 K/uL (0.90-2.90); Mean Corpuscular HGB Conc 33 gm/dL (32-36); Mean Corpuscular Hemoglobin 29 pg (26-34); Mean Corpuscular Volume 88 fL (80-100); RDW Coefficient of Variation % 14.6 % (11.5-15.5); Red Blood Count* 4.76 m/uL (4.30-5.90); White Blood Count* 7.33 K/uL (4.50-11.00)
[2025-08-25 10:20] LABS: Chloride* 102 mmol/L (96-114); Potassium* 4.5 mmol/L (3.6-5.1); Sodium* 134 mmol/L (135-149)
[2025-08-25 10:23] LABS: Anion Gap 8 mEq/L (7-15); Blood Urea Nitrogen* 19 mg/dL (7-30); Calcium* 10.1 mg/dL (8.4-10.6); Carbon Dioxide* 24 mmol/L (20-32); Creatinine* 1.1 mg/dL (0.5-1.5); Estimated Glomerular Filt Rate 69 ml/min; Glucose* 101 mg/dL (60-115)
[2025-08-25 10:24] LABS: Slide Review Reflex No
[2025-08-25 10:57] LABS: TSH With Reflex to FT4* 3.140 uIU/mL (0.270-4.200)
== END 2025-08-25 12:55 | disposition home or self-care (01) ==
PROVIDERS: Emergency Provider Emergency Medicine; PCP Family Medicine
DX: J45.909 Unspecified asthma, uncomplicated (principal); R42 Dizziness and giddiness; E87.1 Hypo-osmolality and hyponatremia
CPT/HCPCS: 36415; 80048; 83605; 84443; 84484; 85025; 93005; 94640; 96360; 99283; 99284; J7030

== ENCOUNTER 2025-10-22 14:49 | Emergency (ER) | payer MEDICARE, SELFPAY ==
[2025-10-22] VITALS (14 sets, daily range): BP systolic 116–151; BP diastolic 66–109; PULSE 85–105; RESP 16–44; TEMP 36.3; O2SAT 92–94
--- OUTSIDE RECORDS SUMMARY | 2025-10-22 14:54 | XMS_ITS | Clinical Summary ---
Author Organization [facility] Address [address] [place] [id number] Care Team Providers Care Manager Commission Name Role Phone Froy Hardy MD Primary Care Provider [phone] Allergies No known active allergies Medications MedicationSigDispense QuantityRefillsLast FilledStart DateEnd DateStatus simvastatin (ZOCOR) 20 mg tablet Take 1 tablet by mouth at bedtime.ctive durable medical equipment (DME) Indications:Right foot [id number] Plantar fasciitis night splint, large 1 Each 09/18/2023ctive hyaluronidase in lido 2%-bupiv. 0.75% - long eye block, clinic supply, Use as directed for procedure. Refrigerate. Exp: 08/15/24 DOS: 08/14/24 10 mL 08/07/2024 4:02 PM CDT08/04/2024ctive Encounters DateTypeDepartmentCare ZfmxUggqwwappjy84/26/2025Transcribe Orders [facility] [place] [phone] Froy Hardy MD 09/23/2025Orders Only [facility] Scanner 1 scan: (1-Ord) [facility], XR CHEST 2V, Orders Only [facility] Scanner 1 scan: (1-Ord) [facility], XR CHEST 2V, Orders Only [facility] Scanner 1 scan: (1-Ord) Orders Only [facility] Scanner 1 scan: (1-Ord) [facility], MULTIPLE LABS, 08/25/2025from Last 3 Months Social History Tobacco UseTypesPacks/DayYears UsedDateSmoking Tobacco: NeverSmokeless Tobacco: Never Tobacco Cessation:Counseling Given: Yes Alcohol UseStandard Drinks/WeekCommentsNo0 (1 standard drink = 0.6 oz pure alcohol)Sex and Gender InformationValueDate RecordedSex Assigned at BirthNot on fileLegal FnsHkse2111/18/2012 7:58 AM CSTGender IdentityNot on fileSexual OrientationNot on file Last Filed Vital Signs Vital SignReadingTime TakenCommentsBlood Jaaildea603/7606 1:47 PM CDT Syadc941904/09/2024 1:47 PM PQDMunjshkrefn44.3 ??C (97.3 ??F)06/19/2018 9:18 AM CDTRespiratory Rate--Oxygen Deqanokhhs47%04/09/2024 1:47 PM CDTInhaled Oxygen Concentration--Jfyekt87.6 kg (184 lb 6.4 oz)04/09/2024 1:47 PM CDTHeight--Body Mass Index-- Plan of Treatment DateTypeDepartmentCare Team (Latest Contact Info)Pujoakcdeio30/12/2026 8:20 AM CSTOffice Visit [facility] [address] [place] [address] Severion Momin MD [address] [facility] [place] [address] Health MaintenanceDue DateLast DoneCommentsTetanus mqlzhys9004/12/1959Depression screening for age 12+1960BMI (ht and wt on same day) for age 18+1966 Hepatitis C screening for age 18-7904/12/1966Pneumococcal series for age 50+ (1 of 1 - PCV)1998Zoster (shingles) series for age 50+ (1 of 2)1998 Medicare Wellness for age 65+2013RSV vaccine for adults or (1 - 1-dose 75+ series)3COVID-19 vaccine series (2024- season) , 08/18/2022, 09/08/2021, Additional history existsInfluenza Vaccine (#1)07/06/2025Hepatitis B series for 19+Aged OutNo longer eligible based on patient's age to complete this topic Procedures Procedure NamePriorityDate/TimeAssociated DiagnosisCommentsSCAN-RADIOLOGY REPORT 09/23/2025 12:00 AM FILM CUTTER SCAN-RADIOLOGY MUVUXP9909/02/2025 12:00 AM CDT SCAN-ELECTROCARDIOGRAM EKG1 12:00 AM CDTSCAN-LABORATORY REPORT 08/25/2025 12:00 AM CDT from Last 3 Months Results * SCAN-RADIOLOGY REPORT (09/23/2025 12:00 AM FILM CUTTER) Only the most recent of2 resultswithin the time period is included. Anatomical RegionLateralityModalityOther Narrative Authorizing ProviderResult TypeResult StatusScannerOTHERFinal Result * SCAN-LABORATORY REPORT (08/25/2025 12:00 AM CDT) Narrative Authorizing ProviderResult TypeResult StatusScannerOTHERFinal Result * SCAN-ELECTROCARDIOGRAM EKG (08/25/2025 12:00 AM CDT) Narrative Authorizing ProviderResult TypeResult StatusScannerOTHERFinal Result from Last 3 Months Insurance Care Teams Team MemberRelationshipSpecialtyStart DateEnd Date Froy Hardy MD [address] [place] [id number] PCP - GeneralFamily Fnjckeki43/3/20
--- NOTE | 2025-10-22 15:25 | ED.SOB ---
HPI - SOB/Dyspnea General Date Seen: 10/22/25 Chief Complaint: Shortness of Breath/Dyspnea Stated Complaint: trouble breathing Time Seen by Provider: 10/22/25 15:00 Source: patient Mode of arrival: ambulatory Limitations: no limitations History of Present Illness HPI Narrative: Patient is a 75-year-old male presenting to the emergency department for shortness of breath. He has a history of anxiety, asthma, hyperlipidemia. States he has been having issues with shortness of breath for the past few months. States today he felt like it got acutely worse. Also no some mild midsternal chest pain. Pain is mostly there when he is coughing. He does not use home oxygen. He was seen in this emergency department over a month ago for similar symptoms. States today seems much worse. States this is the worst symptoms have been. Has been using his home inhalers given to him by his primary care provider he feels like the steroid inhaler has helped but the OB utero all nebulizer has not. He states he was told this symptoms get worse to come back for re-evaluation. Denies any history of blood clots. Denies any abdominal pain, lightheadedness, dizziness, weakness, numbness. Denies any history of heart or lung disease other than the as well. No other concerns and at this time. Related Data Previous Rx's ?Medication ?Instructions ?Recorded omeprazole 40 mg capsule,delayed 40 mg PO QDAY #90 caps 04/23/25 release simvastatin 20 mg tablet 20 mg PO HS #90 tabs 04/23/25 tamsulosin 0.4 mg capsule 0.4 mg PO QDAY #90 caps 04/23/25 albuterol sulfate 90 mcg/actuation 2 puff inhalation Q4-6H PRN 09/02/25 aerosol inhaler shortness of breath or wheezing #8.5 grams inhalat.spacing dev,large mask #1 ea 09/02/25 (BreatheRite Spacer and Mask, Adult) nebulizers (Compact Compressor #1 ea 09/02/25 Nebulizer) albuterol sulfate 2.5 mg/0.5 mL 5 mg inhalation BID #30 ea 09/14/25 solution for nebulization fluticasone furoate 100 1 inh inhalation QDAY #60 ea 09/23/25 mcg-vilanterol 25 mcg/dose inhalation powder (Breo Ellipta) fluticasone propionate 115 2 puff inhalation BID #12 grams 09/23/25 mcg-salmeterol 21 mcg/actuation HFA inhaler (Advair HFA) prednisone 20 mg tablet 40 mg (2 x 20 mg) PO QDAY #10 tabs 09/23/25 budesonide-formoterol HFA 80 2 puff inhalation BID #10.2 grams 09/27/25 mcg-4.5 mcg/actuation aerosol inhaler (Symbicort) Allergies Allergy/AdvReac Type Severity Reaction Status Date / Time No Known Allergies Allergy Verified 10/22/25 16:22 Review of Systems Status of ROS: Reports: 10 or more systems reviewed and unremarkable except as noted in History and below PFSH FOR[facility] Medical History Gastroesophageal reflux (02/08/10) ?K21.9 - Gastro-esophageal reflux disease without esophagitis (ICD-10) Trochanteric bursitis ?M70.60 - Trochanteric bursitis, unspecified hip (ICD-10) Constipation due to opioid therapy ?K59.03 - Drug induced constipation (ICD-10) ?T40.2X5A - Adverse effect of other opioids, initial encounter (ICD-10) Back pain ?M54.9 - Dorsalgia, unspecified (ICD-10) Alcohol abuse (08/14/11) ?F10.10 - Alcohol abuse, uncomplicated (ICD-10) Hemorrhoids ?K64.9 - Unspecified hemorrhoids (ICD-10) History of depression ?Z86.59 - Personal history of other mental and behavioral disorders (ICD-10) Surgical History Status post rotator cuff repair ?Z98.890 - Other specified postprocedural states (ICD-10) History of foot surgery ?Z98.890 - Other specified postprocedural states (ICD-10) History of elbow surgery ?Z98.890 - Other specified postprocedural states (ICD-10) Family History Mother Diabetes, Onset Age: 61 Father Colon cancer Social History Narrative: He is single. Retired. No children. Not sexually active. He exercises by walking and weightlifting about 4 days per week. No alcohol tobacco or recreational drug use. He struggled with alcohol use but has been sober since ~2011. What is your current living situation?: I presently have a place to live Problems where you live: no known problems In the past 12 months, utilities in danger of being shut off: no In past 12 months, lack of transportation kept you from medical appts, meetings, work, or getting things needed for daily living: no In the past 12 mos, have been you worried that your food would run out before you had money to buy more?: never true In the past 12 mos, the food you bought just didn't last and you didn't have money to buy more?: never true Smoking Status: Never smoker Second hand tobacco smoke exposure: No How often do you have a drink containing alcohol: never How often do you have six or more drinks on one occasion: Never AUDIT-C Alcohol total score: 0 Non-prescribed substance use: denies use How often does anyone, including family, friends and others, physically hurt you: never How often does anyone, including family, friends and others, insult or talk down to you: never How often does anyone, including family, friends and others, threaten you with harm: never How often does anyone, including family, friends and others, scream or curse at you: never service: No Exam Narrative: Exam Narrative: Const: Well-nourished, Well-developed, in mild distress Eyes: PERRL, no conjunctival injection, and symmetrical lids HENT: Atraumatic external nose and ears. Moist mucous membranes. Neck: Symmetric, trachea midline, No thyromegaly. CVS: Tachycardic, No murmurs or gallops. Peripheral pulses 2+ and equal in all extremities RESP: Unlabored respiratory effort. Very mild wheezing heard in bilateral lower lungs. Tachypneic GI: Nontender/Nondistended, No rebound or guarding. MSK:Extremities w/o deformity, Normal Active ROM Skin: Warm, Dry. No rashes or lesions. Neuro: Normal Muscle tone, No focal neurological deficits. Psych: Awake, Alert, & Oriented x3. Appropriate mood and affect. Const: Vital Signs, click to edit/add: Vital Signs - 24 hr 12/18/25 14:51 10/22/25 14:59 10/22/25 15:00 Temperature 97.3 F L Pulse Rate 99 100 Pulse Rate [Pulse Oximeter] 105 H Respiratory Rate 44 H 33 H 32 H Blood Pressure Blood Pressure [Ri ght Upper Arm] 132/66 Pulse Oximetry 93 94 94 Oxygen Delivery Me thod Room Air 10/22/25 15:01 10/22/25 15:15 10/22/25 15:30 Temperature Pulse Rate 97 98 90 Pulse Rate [Pulse Oximeter] Respiratory Rate 27 H 29 H 27 H Blood Pressure 121/82 Blood Pressure [Ri ght Upper Arm] Pulse Oximetry 94 93 92 Oxygen Delivery Me thod Room Air 10/22/25 15:32 10/22/25 15:45 10/22/25 16:00 Temperature Pulse Rate 90 94 88 Pulse Rate [Pulse Oximeter] Respiratory Rate 29 H 16 37 H Blood Pressure 116/83 Blood Pressure [Ri ght Upper Arm] Pulse Oximetry 93 92 94 Oxygen Delivery Me thod 10/22/25 16:02 10/22/25 16:15 10/22/25 16:34 Temperature Pulse Rate 88 86 Pulse Rate [Pulse Oximeter] Respiratory Rate 26 H 35 H 40 H Blood Pressure 119/109 H Blood Pressure [Ri ght Upper Arm] Pulse Oximetry 93 93 Oxygen Delivery Me thod 10/22/25 16:35 10/22/25 16:45 Temperature Pulse Rate 89 85 Pulse Rate [Pulse Oximeter] Respiratory Rate 34 H 26 H Blood Pressure 151/77 H Blood Pressure [Ri ght Upper Arm] Pulse Oximetry 93 93 Oxygen Delivery Me thod Room Air Course Vital Signs Vital signs: Initial Vital Signs Temperature 97.3 F L 10/22/25 14:51 Temperature Source Temporal Artery Scan 10/22/25 14:51 Pulse Rate 105 H 10/22/25 14:51 Respiratory Rate 44 H 10/22/25 14:51 Blood Pressure 132/66 10/22/25 14:51 Blood Pressure Mean 88 10/22/25 14:51 Blood Pressure Position Sitting 10/22/25 14:51 Pulse Oximetry 93 10/22/25 14:51 Oxygen Delivery Method Room Air 10/22/25 14:51 Vital Signs Temperature 97.3 F L 10/22/25 14:51 Pulse Rate 105 H 10/22/25 14:51 Respiratory Rate 44 H 10/22/25 14:51 Blood Pressure 132/66 10/22/25 14:51 Pulse Oximetry 93 10/22/25 14:51 Oxygen Delivery Method Room Air 10/22/25 14:51 Temperature 97.3 F L 10/22/25 14:51 Pulse Rate 85 10/22/25 16:45 Respiratory Rate 26 H 10/22/25 16:45 Blood Pressure 151/77 H 10/22/25 16:35 Pulse Oximetry 93 10/22/25 16:45 Oxygen Delivery Method Room Air 10/22/25 16:35 MDM - SOB/Dyspnea MDM Narrative Medical decision making narrative: Patient is a 75-year-old male presenting to the emergency department for shortness of breath. The differential diagnosis of shortness of breath is broad and includes common etiologies such as COPD, asthma, pneumonia, viral syndrome, etc. More serious etiologies considered include PE, CHF, coronary artery disease, pneumothorax, aortic dissection, aortic aneurysm. Will do EKG troponin to look for signs of cardiac abnormalities. Will do a D-dimer to look for signs of PE. Will check a BNP for possible CHF. Chest imaging will be pending D-dimer results. Will also order a BMP, CBC, viral swab come magnesium. Lab work returned showing a D-dimer 1.66. CTA will be ordered. He also has a sodium 129. This is low but not low enough to be causing his symptoms or to be of concern. It is something he can follow-up outpatient. EKG interpreted by myself shows no acute concerning abnormalities. Troponin within normal limits. Considering total in symptoms I do not believe repeat troponin is necessary. Viral swabs are negative. CT a of the chest interpreted by myself and the radiologist does show a small to moderate right pleural effusion with evidence of subtle pleural thickening and calcifications. There is some right lung volume loss likely from atelectasis and scarring. Previous x-rays over the past 2 months does show he had a previous small right pleural effusion. It has gotten a bit worse it is likely the cause of his symptoms. His breathing states has improved and now his heart rate is in the 80s. His baseline respiratory rate is now in the low to mid 20s and every time I do go speak to him his respiratory are rate improves to 16. Some of his symptoms could be related to anxiety. He did seem rather anxious. He was starting to have some shortness of breath again just prior to discharge. Was lungs were relatively clear initially but I did give him on albuterol breathing treatment which he states helped. We did ambulate him and his oxygen went from 94% to 92%. Considering everything and stating that he has had the symptoms before and prednisone has helped I will prescribe him prednisone as this could be related to asthma. Overall I do believe he is safe for discharge. He will need to follow-up with his primary care provider about this pleural effusion along with the hyponatremia. Diagnosis: Right pleural effusion, hyponatremia Lab Data Labs: Lab Results 10/22/25 Range/Units 15:13 WBC 7.25 (4.50-11.00) K/uL RBC 4.72 (4.30-5.90) m/uL Hgb 13.7 (13.5-17.5) gm/dL Hct 42.9 (37.0-53.0) % MCV 91 (80-100) fL MCH 29 (26-34) pg MCHC 32 (32-36) gm/dL RDW Coeff of Nii 14.9 (11.5-15.5) % Plt Count 281 (140-440) K/uL Neut % (Auto) 69.0 (42.0-72.0) % Lymph % (Auto) 17.2 L (20-44) % [place] % (Auto) 11.7 H (0.0-11.0) % Eos % (Auto) 1.2 (0.0-7.0) % Baso % (Auto) 0.8 (0.0-3.0) % Neut # (Auto) 4.99 (1.7-7.0) K/uL Lymph # (Auto) 1.20 (0.90-2.90) K/uL [place] # (Auto) 0.80 (0.00-0.90) K/UL Eos # (Auto) 0.09 (0.00-0.50) K/uL Baso # (Auto) 0.06 (0.00-0.30) K/uL Abs Immat Gran (auto) 0.01 (0.00-0.30) K/uL Imm/Tot Granulo (auto) 0.1 % D-Dimer Quant (PE/DVT) 1.66 H (0.00-0.50) ug/ml Sodium 129 L (135-149) mmol/L Potassium 4.1 (3.6-5.1) mmol/L Chloride 99 (96-114) mmol/L Carbon Dioxide 23 (20-32) mmol/L Anion Gap 7 (7-15) mEq/L BUN 16 (7-30) mg/dL Creatinine 1.1 (0.5-1.5) mg/dL Estimated Creat Clear 48.92 Estimated GFR 69 ml/min Glucose 124 H (60-115) mg/dL Calcium 9.6 (8.4-10.6) mg/dL Magnesium 2.0 (1.5-2.6) mg/dL POC Troponin I High Sensi 3.7 (2.9-28.0) pg/mL NT-Pro-B Natriuret Pep 65 (See Note) pg/mL SARS-CoV-2 (PCR) Negative SARS-CoV-2 (Negative) Influenza Type A (PCR) Negative PCR FLU A (Negative) Influenza Type B (PCR) Negative PCR FLU B (Negative) RSV (PCR) Negative PCR RSV (Negative) Imaging Data CTA chest: Attestation: I have reviewed the pertinent imaging results. Radiologist's impression: 1. Indeterminate partially loculated small-moderate right pleural effusion with evidence of subtle pleural thickening and calcification. Moderate right lung volume loss is noted with peripheral consolidations, likely representing atelectasis or scarring. Short-term follow-up recommended. 2. No pulmonary embolism is seen Please note that all CT scans at this facility use dose modulation, iterative reconstruction, and/or weight-based dosing when appropriate to reduce radiation dose to as low as reasonably achievable. Dictated by Aman Briones MD @ 10/22/2025 4:39:15 PM ECG Data Attestation: I personally reviewed and interpreted this ECG as follows: Prior ECG tracings: available for review Interpretation: Normal sinus rhythm with a rate of 99 beats per minute, normal intervals, normal axis, no ST or T-wave abnormalities. Appears similar previous EKG the file. Discharge Plan Discharge Clinical Impression: Pleural effusion on right, Acute hyponatremia Patient Disposition: Home, Self-Care Condition: Improved Instructions: Pleural Effusion (DC) Additional Instructions: You do still have a flare of fusion in the right lung. It does seem to be slowly growing in size. I recommend close follow-up with the primary care provider to see if they want to do any further management for this. The could be what is causing her shortness of breath. Does have slightly low sodium. this is something you can follow up outpatient and I recommend getting repeat labs done within the next week to make sure did is not getting worse. Return to emergency department for new or worsening symptoms. Continue to use her home inhalers and use the prednisone as needed. Prescriptions: No Action albuterol sulfate 90 mcg/actuation HFA aerosol inhaler 2 puff inhalation Q4-6H PRN (Reason: shortness of breath or wheezing) Qty: 8.5 0RF (DME) BreatheRite Spacer-Mask,Adult Spacer See Rx Instructions miscellaneous .MEDSUPPLY Qty: 1 0RF Rx Instructions: As directed (DME) nebulizers [Compact Compressor Nebulizer] Misc See Rx Instructions .Route Qty: 1 0RF Rx Instructions: As directed albuterol sulfate 2.5 mg/0.5 mL solution for nebulization 5 mg inhalation BID Qty: 30 3RF simvastatin 20 mg tablet 20 mg PO HS Qty: 90 3RF omeprazole 40 mg capsule,delayed release(DR/EC) 40 mg PO QDAY Qty: 90 3RF tamsulosin 0.4 mg capsule 0.4 mg PO QDAY Qty: 90 3RF prednisone 20 mg tablet 40 mg PO QDAY Qty: 10 0RF fluticasone furoate-vilanterol [Breo Ellipta] 100-25 mcg/dose blister with device 1 inh inhalation QDAY Qty: 60 12RF Advair HFA 115-21 mcg/actuation HFA aerosol inhaler 2 puff inhalation BID Qty: 12 11RF budesonide-formoterol [Symbicort] 80-4.5 mcg/actuation HFA aerosol inhaler 2 puff inhalation BID Qty: 10.2 12RF Follow Up/Referrals: Froy Hardy MD [Primary Care Provider, Family Practice] Stand Alone Forms: [employer] Info Instructions
[2025-10-22 15:35] LABS: Hematocrit* 42.9 % (37.0-53.0); Hemoglobin* 13.7 gm/dL (13.5-17.5); Immature Granulocytes Abs Auto 0.01 K/uL (0.00-0.30); Immature Granulocytes Pct Auto 0.1 %; Mean Corpuscular HGB Conc 32 gm/dL (32-36); Mean Corpuscular Hemoglobin 29 pg (26-34); Mean Corpuscular Volume 91 fL (80-100); RDW Coefficient of Variation % 14.9 % (11.5-15.5); Red Blood Count* 4.72 m/uL (4.30-5.90); White Blood Count* 7.25 K/uL (4.50-11.00)
[2025-10-22 15:38] LABS: Lymphocytes Absolute Auto 1.20 K/uL (0.90-2.90); Slide Review Reflex No
[2025-10-22 15:41] LABS: Chloride* 99 mmol/L (96-114); Potassium* 4.1 mmol/L (3.6-5.1); Sodium* 129 mmol/L (135-149)
[2025-10-22 15:44] LABS: Anion Gap 7 mEq/L (7-15); Blood Urea Nitrogen* 16 mg/dL (7-30); Calcium* 9.6 mg/dL (8.4-10.6); Carbon Dioxide* 23 mmol/L (20-32); Creatinine* 1.1 mg/dL (0.5-1.5); Est. Creatinine Clearance* 48.92; Estimated Glomerular Filt Rate 69 ml/min; Glucose* 124 mg/dL (60-115)
[2025-10-22 15:49] LABS: D Dimer Quantitative* 1.66 ug/ml (0.00-0.50)
--- NOTE | 2025-10-22 15:53 | CRLHL7_ITS ---
For Patients: As a result of the Cures Act, medical imaging exams and procedure reports are released immediately into your electronic medical record. You may view this report before your referring provider. If you have questions, please contact your health care provider. INDICATION: Pulmonary embolism suspected, high probability. TECHNIQUE: CT chest PE was acquired with 100 cc Omnipaque 350 IV contrast. Coronal and MIP reconstructions were performed. COMPARISON: None. FINDINGS: No pulmonary embolism is seen. There is a small-moderate partially loculated right pleural effusion there may be subtle right posterior pleural thickening. No significant pleural enhancement to definitively suggest empyema. There is associated volume loss with right middle and right lower lobe consolidations, likely representing atelectasis scarring. Mild left basilar atelectasis with trace left effusion is seen. No pneumothorax is seen. No mediastinal or hilar lymphadenopathy. The heart is prominent. Coronary calcifications present. The aorta is nonaneurysmal. No axillary lymphadenopathy. No chest wall mass is seen. Images of the upper abdomen demonstrate no gross abnormality. Bone windows demonstrate no suspicious lytic or sclerotic lesion. IMPRESSION: 1. Indeterminate partially loculated small-moderate right pleural effusion with evidence of subtle pleural thickening and calcification. Moderate right lung volume loss is noted with peripheral consolidations, likely representing atelectasis or scarring. Short-term follow-up recommended. 2. No pulmonary embolism is seen Please note that all CT scans at this facility use dose modulation, iterative reconstruction, and/or weight-based dosing when appropriate to reduce radiation dose to as low as reasonably achievable. Dictated by Aman Briones MD @ 10/22/2025 4:39:15 PM (Electronically Signed)
[2025-10-22 15:57] LABS: NT Pro B Type NatriureticPept* 65 pg/mL (See Note)
[2025-10-22 16:25] LABS: PCR FLU A Negative PCR FLU A (Negative); PCR FLU B Negative PCR FLU B (Negative); PCR RSV Negative PCR RSV (Negative); SARS PCR* Negative SARS-CoV-2 (Negative)
== END 2025-10-22 18:35 | disposition home or self-care (01) ==
PROVIDERS: Emergency Provider Student in an Organized Health Care Education/Training Program; PCP Family Medicine
DX: J90 Pleural effusion, not elsewhere classified (principal); E87.1 Hypo-osmolality and hyponatremia
CPT/HCPCS: 36415; 71275; 80048; 83735; 83880; 84484; 85025; 85379; 87631; 93005; 94640; 99284; 99285; Q9967

== ENCOUNTER 2025-10-26 14:23 | Outpatient (CLI) | payer MEDICARE, SELFPAY | END 2025-10-26 14:24 | disposition home or self-care (01) | LOC: NFLDREF 10-31 17:06 | PROVIDERS: PCP Family Medicine; Referring Provider Family Medicine; Visit Provider Family Medicine | DX: E87.1 Hypo-osmolality and hyponatremia (principal) | CPT/HCPCS: 80048 ==